=== PATIENT | female | born 2000 | race Caucasian/White ===

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

== ENCOUNTER 2020-02-02 21:39 | Emergency (ER) | payer MEDICAID ==
[2020-02-02 22:05] VITALS: BP 128/80
[2020-02-02] MEDS ORDERED: DIPHENHYDRAMINE HCL 50 MG/ML VIAL IV ONE (23:13)
[2020-02-02] MEDS ORDERED: NORMAL SALINE 1000 ML 1,000 ML IV ONE (23:13)
[2020-02-02] MEDS ORDERED: METOCLOPRAMIDE HCL INJ/PF 10 MG/2 ML SDV IV ONE (23:13)
--- NOTE | 2020-02-02 23:15 | ER Document Report ---
ED GI/ - General Chief Complaint: Nausea/Vomiting/Diarrhea Stated Complaint: NAUSEA VOMITTING Time Seen by Provider: 02/02/20 22:50 Notes: Patient is a 20-year-old female that comes emergency department for chief complaint of vomiting that started last night at 4 AM. She states she vomited all day, she states she believes she is vomited "40 times". She states she has had 3 loose stools. She denies hematemesis or hematochezia, denies fever, denies recent travel, denies sick contacts, denies any suspicious foods. She denies recent antibiotics. She states she has pain in her upper abdomen, into her chest, and into her back. She has had a cholecystectomy. She denies other abdominal surgeries. LMP within the past month. TRAVEL OUTSIDE OF THE [place] IN LAST 30 DAYS: No - Related Data Allergies/Adverse Reactions: ondansetron [From Zofran] Allergy (Intermediate, Verified 07/30/19 14:21) Hives Past Medical History - General Information source: Patient - Social History Smoking Status: Current Every Day Smoker Smoking Education Provided: Yes - <3 min Frequency of alcohol use: Occasional Drug Abuse: None Lives with: Spouse/Significant other Family History: Reviewed & Not Pertinent, Other - A sister had her gallbladder removed at age 20 Patient has homicidal ideation: No - Past Medical History Cardiac Medical History: Denies: Hx Coronary Artery Disease, Hx Heart Attack, Hx Hypertension Pulmonary Medical History: Reports: Hx Pneumonia Denies: Hx Asthma, Hx Bronchitis, Hx COPD Neurological Medical History: Denies: Hx Cerebrovascular Accident, Hx Seizures Endocrine Medical History: Denies: Hx Diabetes Mellitus Type 1, Hx Hyperthyroidism, Hx Hypothyroidism Renal/ Medical History: Denies: Hx Peritoneal Dialysis GI Medical History: Reports: Hx Gastroesophageal Reflux Disease, Hx Ulcer Musculoskeletal Medical History: Denies Hx Arthritis Psychiatric Medical History: Reports: Hx Anxiety, Hx Attention Deficit Hyperactivity Disorder - ADD, Hx Bipolar Disorder, Hx Depression - anxiety, anger issues Past Surgical History: Reports: Hx Cholecystectomy - 05/2017, Hx Gynecologic Surgery - x3. Denies: Hx Hysterectomy - Immunizations Immunizations up to date: Yes Hx Diphtheria, Pertussis, Tetanus Vaccination: Yes - UTD Review of Systems - Review of Systems Constitutional: No symptoms reported EENT: No symptoms reported Cardiovascular: No symptoms reported Respiratory: No symptoms reported Gastrointestinal: See HPI Genitourinary: No symptoms reported Female Genitourinary: No symptoms reported Musculoskeletal: No symptoms reported Skin: No symptoms reported Hematologic/Lymphatic: No symptoms reported Neurological/Psychological: No symptoms reported Physical Exam - Vital signs Vitals: Temp Pulse Resp BP Pulse Ox 98.8 F 67 20 128/80 H 98 02/02/20 22:04 02/02/20 22:04 02/02/20 22:04 02/02/20 22:04 02/02/20 22:04 - Notes Notes: GENERAL: Alert, interacts well. No acute distress. Talkative and well- appearing, playing on her phone HEAD: Normocephalic, atraumatic. EYES: Pupils equal, round, and reactive to light. Extraocular movements intact. ENT: Oral mucosa dry, tongue midline. Oropharynx unremarkable. Airway patent. NECK: Full range of motion. Supple. Trachea midline. No lymphadenopathy. LUNGS: Clear to auscultation bilaterally, no wheezes, rales, or rhonchi. No respiratory distress. Non-tender chest wall. HEART: Regular rate and rhythm. No murmur ABDOMEN: Soft, non-tender. Non-distended. EXTREMITIES: Moves all 4 extremities spontaneously. No edema, normal radial and dorsalis pedis pulses bilaterally. No cyanosis. BACK: no cervical, thoracic, lumbar midline tenderness. No saddle anesthesia, normal distal neurovascular exam. Moves all extremities in full range of motion. NEUROLOGICAL: Alert and oriented x3. Normal speech. Cranial nerves II through XII grossly intact. Strength 5/5 in all extremities. PSYCH: Normal affect, normal mood. SKIN: Warm, dry, normal turgor. No rashes or lesions noted. Course - Re-evaluation Re-evalutation: CBC shows mild leukocytosis but this is nonspecific given patient's well appearance, unremarkable vital signs, soft nontender abdomen, and unremarkable physical exam otherwise. Chemistry suggesting dehydration, urinalysis also showing elevated specific gravity and ketones. There are some white blood cells and leukocyte esterase but there are more squamous epithelial cells. Patient has no urinary symptoms, culture was placed instead of treatment at this time. Urine drug screen does show marijuana. Patient has tested positive for marijuana multiple times in the past, based on her repeated vomiting with no other apparent symptoms and no obvious cause otherwise I do suspect cyclic vomiting syndrome. I discussed details of the work-up with patient and my suspicions. After Reglan, Benadryl, IV fluids patient is improved, she tolerated p.o. medications without difficulty, she drinks 2 full cups of water, on reevaluation again she states she feels much improved and that she is ready to go home. I discussed precautions, recommendations, and return details at length. Patient states understanding and agreement with plan. Stable and well-appearing at time of discharge. - Vital Signs Vital signs: Temp Pulse Resp BP Pulse Ox 98.8 F 67 20 128/80 H 98 02/02/20 22:04 02/02/20 22:04 02/02/20 22:04 02/02/20 22:04 02/02/20 22:04 - Laboratory Result Diagrams: 02/02/20 23:44 02/02/20 23:44 Laboratory results interpreted by me: 02/02/20 02/02/20 02/02/20 23:44 23:44 23:57 WBC 13.6 H RBC 5.47 H MCV 79 L MCH 26.7 L Lymph % (Auto) 8.5 L [place] % (Auto) 2.6 L Absolute Neuts (auto) 12.0 H Seg Neutrophils % 88.5 H Glucose 128 H Calcium 10.3 H Total Protein 8.5 H Urine Protein 100 H Urine Ketones TRACE H Urine Blood SMALL H Ur Leukocyte Esterase TRACE H Discharge - Discharge Clinical Impression: Dehydration, Cyclic vomiting syndrome Vomiting Qualifiers: Vomiting type: unspecified Vomiting Intractability: non-intractable Nausea presence: with nausea Qualified Code(s): R11.2 - Nausea with vomiting, unspecified Condition: Stable Disposition: HOME, SELF-CARE Additional Instructions: Your work-up shows dehydration but is otherwise reassuring. Based on your evaluation and symptoms I believe you have cyclic vomiting syndrome caused by frequent and high levels of THC from cannabis. Do not use marijuana, take Phenergan for nausea, take Pepcid to help recover, drink plenty of fluids, start with bland diet. Symptoms should simply resolve. Follow-up with primary care. Return if you worsen including uncontrolled vomiting, fever, severe worsening pain, or any other concerning or worsening symptoms. Prescriptions: Famotidine [Pepcid 20 mg Tablet] 20 mg PO BID #12 tablet Promethazine HCl [Phenergan 25 mg Tablet] 25 mg PO Q6H PRN #15 tablet PRN Reason: Forms: Return to Work, Treatment of Relative/Child
[2020-02-03 00:08] LABS: ABSOLUTE LYMPHOCYTES (AUTO) 1.2 10^3/uL (0.5-4.7); MEAN CORPUSCULAR HGB CONC 33.9 g/dL (32.0-36.0); PLATELET COUNT 291 10^3/uL (150-450); TOTAL CELLS COUNTED % (AUTO) 100 %
[2020-02-03 00:14] LABS: ABSOLUTE BASOPHILS # (AUTO) 0.1 10^3/uL (0.0-0.2); ABSOLUTE MONOCYTES (AUTO) 0.4 10^3/uL (0.1-1.4); BASOPHILS % (AUTO) 0.4 % (0-2); HEMATOCRIT 43.1 % (36.0-47.0); HEMOGLOBIN 14.6 g/dL (12.0-15.5); LYMPHOCYTES % (AUTO) 8.5 % (13-45); MEAN CORPUSCULAR HEMOGLOBIN 26.7 pg (27.0-33.4); MEAN CORPUSCULAR VOLUME 79 fl (80-97); MONOCYTES % (AUTO) 2.6 % (3-13); RED BLOOD COUNT 5.47 10^6/uL (3.72-5.28); RED CELL DISTRIBUTION WIDTH 13.7 % (11.5-14.0); SEGMENTED NEUTROPHILS % (AUTO) 88.5 % (42-78); WHITE BLOOD COUNT 13.6 10^3/uL (4.0-10.5)
[2020-02-03 00:17] LABS: ALKALINE PHOSPHATASE 88 U/L (38-126); ANION GAP 9 (5-19); ASPARTATE AMINO TRANSFERASE 22 U/L (14-36); BILIRUBIN,TOTAL 0.6 mg/dL (0.2-1.3); BLOOD UREA NITROGEN 12 mg/dL (7-20); CALCIUM 10.3 mg/dL (8.4-10.2); CARBON DIOXIDE 27 mmol/L (22-30); CHLORIDE 104 mmol/L (98-107); GLUCOSE 128 mg/dL (75-110); POTASSIUM 4.6 mmol/L (3.6-5.0); TOTAL PROTEIN 8.5 g/dL (6.3-8.2)
[2020-02-03] MEDS ORDERED: MAG HYDROX/AL HYDROX/SIMETH SUSP 30 ML UDCUP PO ONE (00:34)
[2020-02-03] MEDS ORDERED: LIDOCAINE 2% VISCOUS SOLN 15 ML UDCUP PO ONE (00:34)
[2020-02-03] MEDS ORDERED: HYDROCODONE/ACETAMINOPHEN 5-325 MG TABLET PO ONE (00:34)
[2020-02-03 00:38] LABS: APPEARANCE,URINE SLIGHTLY-CLOUDY; BILIRUBIN,URINE NEGATIVE (NEGATIVE); COLOR,URINE YELLOW; GLUCOSE, URINE NEGATIVE (NEGATIVE); KETONES,URINE TRACE mg/dL (NEGATIVE); LEUKOCYTE ESTERASE,URINE TRACE (NEGATIVE); NITRITE,URINE NEGATIVE (NEGATIVE); PROTEIN,URINE 100 mg/dL (NEGATIVE); URINE SPECIFIC GRAVITY 1.027; UROBILINOGEN,URINE NEGATIVE mg/dL (<2.0)
[2020-02-03] MEDS ORDERED: PROMETHAZINE HCL 25 MG TABLET PO ONE (02:04)
[2020-02-03 02:35] LABS: URINE AMPHETAMINES SCREEN NEGATIVE; URINE BARBITURATES SCREEN NEGATIVE; URINE BENZODIAZEPINES SCREEN NEGATIVE; URINE COCAINE SCREEN NEGATIVE; URINE MARIJUANA (THC) SCREEN UNCONFIRMED POSITIVE; URINE METHADONE SCREEN NEGATIVE; URINE PHENCYCLIDINE SCREEN NEGATIVE
--- NOTE | 2020-02-03 06:24 | EKG REPORT ---
SEVERITY:- NORMAL ECG - SINUS ARRHYTHMIA : Confirmed by: Jon Cr MD 03-Feb-2020 06:23:54
== END 2020-02-03 03:25 | disposition home or self-care (01) ==
LOC: ER 21:39
DX: E86.0 Dehydration (principal); R11.15 Cyclical vomiting syndrome unrelated to migraine; R19.7 Diarrhea, unspecified; F17.200 Nicotine dependence, unspecified, uncomplicated; Z90.49 Acquired absence of other specified parts of digestive tract
CPT/HCPCS: 93005; 99283; 96361; 96374; 96375; 36415; 83690; 84703; 85025; 80053; 81001; 80307; 93010; J1200; J3490 ×3; J2765; J7030; 87086

== ENCOUNTER 2020-05-02 14:57 | Emergency (ER) | payer MEDICAID | END 2020-05-02 15:46 | disposition left against medical advice (07) | LOC: ER 14:57 | DX: Z53.21 Procedure and treatment not carried out due to patient leaving prior to being seen by health care provider (principal) ==

== ENCOUNTER 2020-06-17 19:02 | Emergency (ER) | payer MEDICAID ==
[2020-06-17] MEDS ORDERED: PROMETHAZINE HCL INJ 25 MG/1 ML VIAL IV ONE ×2 (19:42→22:22)
[2020-06-17] MEDS ORDERED: NORMAL SALINE 1000 ML 1,000 ML IV ONE (19:42)
--- NOTE | 2020-06-17 19:45 | ER Document Report ---
ED Medical Screen (RME) - General Stated Complaint: SHORTNESS OF BREATH/NAUSEA/+ Time Seen by Provider: 06/17/20 19:30 Mode of Arrival: Ambulatory Information source: Patient Notes: Patient is a 20-year-old female comes emergency room complaining of nausea vomiting and being . Patient states that she went to the hospital in [place] about 3 days ago was told that she was 5 to 6 weeks get an u ltrasound the patient states that he did not see anything at that time. Diagnosed with UTI and put her on antibiotics. Patient states that she has been getting worse increasing shortness of breath vomiting anything she eats or drinks over the last 24 hours. She states she is unable to hold anything down. Patient is 3 para 02 abortions. She also states that she has a major headache with head pressure. She is also had a cholecystectomy in the past. Patient does admit to smoking. Patient also does state that she had a recent history of pneumonia and this feels similar to that. Physical examination shows a new well-nourished well-developed 20-year-old female though no apparent distress does appear ill and is actively vomiting in triage. Cardiac: Patient displays a regular rate and rhythm of 67 bpm on monitor and a blood pressure 125/81. Lungs: Bilateral breath sounds breath sounds decreased no rhonchi rales or wheeze heard. Abdomen: Bowel sounds are present all quads there is no tenderness to palpation at this time. I have greeted and performed a rapid initial assessment of this patient. A comprehensive ED assessment and evaluation of the patient, analysis of test re sults and completion of the medical decision making process will be conducted by additional ED providers. Dictation of this chart was performed using voice recognition software; therefore, there may be some unintended grammatical errors. TRAVEL OUTSIDE OF THE [place] IN LAST 30 DAYS: No - Related Data Allergies/Adverse Reactions: ondansetron [From Zofran] Allergy (Intermediate, Verified 07/30/19 14:21) Hives Home Medications: prenatals Past Medical History - Social History Frequency of alcohol use: None Drug Abuse: None - Past Medical History Cardiac Medical History: Denies: Hx Coronary Artery Disease, Hx Heart Attack, Hx Hypertension Pulmonary Medical History: Reports: Hx Pneumonia Denies: Hx Asthma, Hx Bronchitis, Hx COPD Neurological Medical History: Denies: Hx Cerebrovascular Accident, Hx Seizures Endocrine Medical History: Denies: Hx Diabetes Mellitus Type 1, Hx Hyperthyroidism, Hx Hypothyroidism Renal/ Medical History: Denies: Hx Peritoneal Dialysis GI Medical History: Reports: Hx Gastroesophageal Reflux Disease, Hx Ulcer Musculoskeltal Medical History: Denies Hx Arthritis Psychiatric Medical History: Reports: Hx Anxiety, Hx Attention Deficit Hyperactivity Disorder - ADD, Hx Bipolar Disorder, Hx Depression - anxiety, anger issues Past Surgical History: Reports: Hx Cholecystectomy - 05/2017, Hx Gynecologic Surgery - x3. Denies: Hx Hysterectomy - Immunizations Immunizations up to date: Yes Hx Diphtheria, Pertussis, Tetanus Vaccination: Yes - UTD Physical Exam - Vital signs Vitals: Temp Pulse Resp BP Pulse Ox 98.4 F 67 20 123/81 99 06/17/20 19:25 06/17/20 19:25 06/17/20 19:25 06/17/20 19:25 06/17/20 19:25 Course - Vital Signs Vital signs: Temp Pulse Resp BP Pulse Ox 98.4 F 67 20 123/81 99 06/17/20 19:25 06/17/20 19:25 06/17/20 19:25 06/17/20 19:25 06/17/20 19:25
[2020-06-17 21:05] LABS: ABSOLUTE LYMPHOCYTES (AUTO) 1.4 10^3/uL (0.5-4.7); ABSOLUTE MONOCYTES (AUTO) 0.6 10^3/uL (0.1-1.4); ABSOLUTE NEUT (AUTO) 11.6 10^3/uL (1.7-8.2); BASOPHILS % (AUTO) 0.3 % (0-2); HEMATOCRIT 42.1 % (36.0-47.0); HEMOGLOBIN 14.3 g/dL (12.0-15.5); LYMPHOCYTES % (AUTO) 10.6 % (13-45); MEAN CORPUSCULAR HEMOGLOBIN 26.5 pg (27.0-33.4); MEAN CORPUSCULAR HGB CONC 33.9 g/dL (32.0-36.0); MEAN CORPUSCULAR VOLUME 78 fl (80-97); MONOCYTES % (AUTO) 4.2 % (3-13); PLATELET COUNT 280 10^3/uL (150-450); RED BLOOD COUNT 5.38 10^6/uL (3.72-5.28); RED CELL DISTRIBUTION WIDTH 13.2 % (11.5-14.0); SEGMENTED NEUTROPHILS % (AUTO) 84.9 % (42-78); TOTAL CELLS COUNTED % (AUTO) 100 %; WHITE BLOOD COUNT 13.7 10^3/uL (4.0-10.5)
[2020-06-17 21:25] LABS: ALBUMIN 4.5 g/dL (3.5-5.0); ALKALINE PHOSPHATASE 62 U/L (38-126); ANION GAP 10 (5-19); ASPARTATE AMINO TRANSFERASE 33 U/L (14-36); BILIRUBIN,DIRECT 0.2 mg/dL (0.0-0.4); BILIRUBIN,TOTAL 1.1 mg/dL (0.2-1.3); BLOOD UREA NITROGEN 10 mg/dL (7-20); CALCIUM 9.9 mg/dL (8.4-10.2); CARBON DIOXIDE 26 mmol/L (22-30); CHLORIDE 101 mmol/L (98-107); GLUCOSE 97 mg/dL (75-110); POTASSIUM 4.2 mmol/L (3.6-5.0); TOTAL PROTEIN 7.5 g/dL (6.3-8.2)
[2020-06-17 21:34] LABS: APPEARANCE,URINE CLOUDY; BILIRUBIN,URINE NEGATIVE (NEGATIVE); COLOR,URINE AMBER; GLUCOSE, URINE NEGATIVE (NEGATIVE); KETONES,URINE 80 mg/dL (NEGATIVE); LEUKOCYTE ESTERASE,URINE LARGE (NEGATIVE); NITRITE,URINE NEGATIVE (NEGATIVE); PROTEIN,URINE 100 mg/dL (NEGATIVE); URINE SPECIFIC GRAVITY 1.032
--- NOTE | 2020-06-17 21:50 | ER Document Report ---
ED Headache - General Chief Complaint: Headache Stated Complaint: SHORTNESS OF BREATH/NAUSEA/+ Time Seen by Provider: 06/17/20 19:30 Mode of Arrival: Ambulatory Information source: Patient Notes: ED Medical Screen (Dereck Kraft) - General Stated Complaint: SHORTNESS OF BREATH/NAUSEA/+ Time Seen by Provider: 06/17/20 19:30 Mode of Arrival: Ambulatory Information source: Patient Notes: Patient is a 20-year-old female comes emergency room complaining of nausea vomiting and being . Patient states that she went to the hospital in [place] about 3 days ago was told that she was 5 to 6 weeks get an ultrasound the patient states that he did not see anything at that time. Diagnosed with UTI and put her on antibiotics. Patient states that she has been getting worse increasing shortness of breath vomiting anything she eats or drinks over the last 24 hours. She states she is unable to hold anything down. Patient is 3 para 02 abortions. She also states that she has a major headache with head pressure. She is also had a cholecystectomy in the past. Patient does admit to smoking. Patient also does state that she had a recent history of pneumonia and this feels similar to that. Physical examination shows a new well-nourished well-developed 20-year-old female though no apparent distress does appear ill and is actively vomiting in triage. Cardiac: Patient displays a regular rate and rhythm of 67 bpm on monitor and a blood pressure 125/81. Lungs: Bilateral breath sounds breath sounds decreased no rhonchi rales or wheeze heard. Abdomen: Bowel sounds are present all quads there is no tenderness to palpation at this time. MY NOTES 20-year-old black female arrives with chief complaint of nausea but no vomiting and she is now around 5 weeks gravid. She went to [facility] the prior night and had an ultrasound done that was positive for IUP at 5 weeks. She reports she has had no appetite for several weeks but especially over the last 2 days. She also has anterior chest pressure. She reports she cannot hold any fluids down well and does not have any taste. Patient reports she has had pneumonia around 2015 and she is currently G4, P0 AB 3. Patient also reports she has had UTIs in the past. She denies any COVID-19 but chest x-ray tonight reveals interstitial pattern especially right lower lobe. Patient reports her mother cleaned her right ear out prior to arrival with ear cleanser. She has some right ear ache. TRAVEL OUTSIDE OF THE [place] IN LAST 30 DAYS: No - Related Data Allergies/Adverse Reactions: ondansetron [From Zofran] Allergy (Intermediate, Verified 07/30/19 14:21) Hives Home Medications: prenatals Past Medical History - General Information source: Patient - Social History Smoking Status: Never Smoker Cigarette use (# per day): No Chew tobacco use (# tins/day): No Smoking Education Provided: No Frequency of alcohol use: None Drug Abuse: None Lives with: Family Family History: Reviewed & Not Pertinent, Other - A sister had her gallbladder removed at age 20 Patient has suicidal ideation: No Patient has homicidal ideation: No - Past Medical History Cardiac Medical History: Denies: Hx Coronary Artery Disease, Hx Heart Attack, Hx Hypertension Pulmonary Medical History: Reports: Hx Pneumonia Denies: Hx Asthma, Hx Bronchitis, Hx COPD Neurological Medical History: Denies: Hx Cerebrovascular Accident, Hx Seizures Endocrine Medical History: Denies: Hx Diabetes Mellitus Type 1, Hx H yperthyroidism, Hx Hypothyroidism Renal/ Medical History: Denies: Hx Peritoneal Dialysis GI Medical History: Reports: Hx Gastroesophageal Reflux Disease, Hx Ulcer Musculoskeletal Medical History: Denies Hx Arthritis Psychiatric Medical History: Reports: Hx Anxiety, Hx Attention Deficit Hyperactivity Disorder - ADD, Hx Bipolar Disorder, Hx Depression - anxiety, anger issues Past Surgical History: Reports: Hx Cholecystectomy - 05/2017, Hx Gynecologic Surgery - x3. Denies: Hx Hysterectomy - Immunizations Immunizations up to date: Yes Hx Diphtheria, Pertussis, Tetanus Vaccination: Yes - UTD Review of Systems - Review of Systems Constitutional: See HPI, Malaise, Recent illness EENT: See HPI, Ear pain - R>L Cardiovascular: See HPI, Chest pain Respiratory: No symptoms reported Gastrointestinal: No symptoms reported Genitourinary: No symptoms reported Female Genitourinary: No symptoms reported Musculoskeletal: No symptoms reported Skin: No symptoms reported Hematologic/Lymphatic: No symptoms reported Neurological/Psychological: No symptoms reported Physical Exam - Vital signs Vitals: Temp Pulse Resp BP Pulse Ox 98.4 F 67 20 123/81 99 06/17/20 19:25 06/17/20 19:25 06/17/20 19:25 06/17/20 19:25 11/25/20 19:25 Interpretation: Normal - General General appearance: Appears well, Alert - HEENT Head: Normocephalic, Atraumatic Eyes: Normal Conjunctiva: Normal Cornea: Normal Extraocular movements intact: Yes Pupils: PERRL External canal: Other - moist cerumen in both canals Sinus: Normal Nasal: Normal Mouth/Lips: Normal Mucous membranes: Normal Pharynx: Normal Neck: Normal - Respiratory Respiratory status: No respiratory distress Chest status: Nontender Breath sounds: Normal Chest palpation: Normal - Cardiovascular Rhythm: Regular Heart sounds: Normal auscultation Murmur: No - Abdominal Inspection: Normal Distension: No distension Bowel sounds: Normal Tenderness: Nontender Organomegaly: No organomegaly - Rectal Hemorrhoids: Other - deferred - Genitourinary Bimanuel exam: Other - deferred - Back Back: Normal, Nontender - Extremities General upper extremity: Normal inspection, Nontender, Normal color, Normal ROM, Normal temperature General lower extremity: Normal inspection, Nontender, Normal color, Normal ROM, Normal temperature, Normal weight bearing. No: Ruddy's sign - Neurological Neuro grossly intact: Yes Cognition: Normal Orientation: AAOx4 [place] Coma Scale Eye Opening: Spontaneous [place] Coma Scale Verbal: Oriented [place] Coma Scale Motor: Obeys Commands [place] Coma Scale Total: 15 Speech: Normal Motor strength normal: LUE, RUE, LLE, RLE Sensory: Normal - Psychological Associated symptoms: Anxious - Skin Skin Temperature: Warm Skin Moisture: Dry Skin Color: Normal Course - Vital Signs Vital signs: Temp Pulse Resp BP Pulse Ox 98.4 F 67 20 123/81 99 06/17/20 19:25 06/17/20 19:25 06/17/20 19:25 06/17/20 19:25 06/17/20 19:25 - Laboratory Result Diagrams: 06/17/20 20:40 06/17/20 20:40 Laboratory results interpreted by me: 06/17/20 06/17/20 06/17/20 20:40 20:40 20:40 WBC 13.7 H RBC 5.38 H MCV 78 L MCH 26.5 L Lymph % (Auto) 10.6 L Absolute Neuts (auto) 11.6 H Seg Neutrophils % 84.9 H Creatinine 0.50 L ALT 39 H Beta HCG, Quant 88572.00 H Urine Protein 100 H Urine Ketones 80 H Urine Urobilinogen 2.0 H Ur Leukocyte Esterase LARGE H - Diagnostic Test Radiology reviewed: Reports reviewed - Chest x-ray NAD per radiologist; interstitial on my exam Discharge - Discharge Clinical Impression: Bronchitis, EMESIS GRAVIDARUM UTI (urinary tract infection) Qualifiers: Urinary tract infection type: acute cystitis Hematuria presence: without hematuria Qualified Code(s): N30.00 - Acute cystitis without hematuria Qualifiers: Weeks of gestation: less than 8 weeks Qualified Code(s): Z3A.01 - Less than 8 weeks gestation of Condition: Stable Disposition: HOME, SELF-CARE Additional Instructions: Follow-up with OB doctor this week return to ER as needed take medicines as directed encourage fluids. Prescriptions: Promethazine HCl [Phenergan 25 mg Tablet] 1 tab PO BID PRN #15 tablet PRN Reason: nausea Forms: Return to Work
[2020-06-17] MEDS ORDERED: CEFTRIAXONE INJ 1000 MG VIAL IV ONE (22:10)
[2020-06-17] MEDS ORDERED: AZITHROMYCIN INJ 500 MG VIAL IV ONE (22:13)
--- NOTE | 2020-06-17 22:40 | RADIOLOGY REPORT (SQ) ---
EXAM DESCRIPTION: XR CHEST 1 VIEW COMPLETED DATE/TME: 06/17/2020 22:02 CLINICAL HISTORY: 20 years, Female, sob COMPARISON: November 09, 2019 NUMBER OF VIEWS: One TECHNIQUE: Portable AP view of the chest was obtained at 9:56 PM. LIMITATIONS: None. FINDINGS: The heart size is normal. Lungs appear clear. There is no evidence of pleural effusion or pneumothorax. No definite acute bony abnormality is seen. IMPRESSION: No acute abnormality as above. copyright 2010 [employer]- All Rights Reserved
[2020-06-18 02:22] LABS: CHLAM PCR NOT DETECTED (NOT DETECT)
[2020-06-18 03:07] VITALS: BP 116/54
[2020-06-18 03:51] LABS: A TYPE INFLUENZA AG NEGATIVE (NEGATIVE); B INFLUENZA AG NEGATIVE (NEGATIVE)
== END 2020-06-18 03:13 | disposition home or self-care (01) ==
LOC: ER 19:02
DX: O23.11 Infections of bladder in pregnancy, first trimester (principal); O99.511 Diseases of the respiratory system complicating pregnancy, first trimester; O21.0 Mild hyperemesis gravidarum; O26.891 Other specified pregnancy related conditions, first trimester; R51.9 Headache, unspecified; R06.02 Shortness of breath; R07.9 Chest pain, unspecified; H92.01 Otalgia, right ear; O99.331 Smoking (tobacco) complicating pregnancy, first trimester; Z3A.01 Less than 8 weeks gestation of pregnancy; Z20.828 Contact with and (suspected) exposure to other viral communicable diseases
CPT/HCPCS: 99284; 96361 ×2; 96375; 96365; 96368; 36415; 87040; 87086; 84702; 83690; 85025; 87635; 80053; 81001; 87491; 87591; 87804; 71045; J2550; J0696; J7030; J0456; C9803

== ENCOUNTER 2020-06-27 12:29 | Emergency (ER) | payer MEDICAID ==
[2020-06-27] MEDS ORDERED: RINGERS SOLUTION,LACTATED 1,000 ML IV ONE (13:21)
[2020-06-27] MEDS ORDERED: METOCLOPRAMIDE HCL INJ/PF 10 MG/2 ML SDV IV ONE (13:22)
--- NOTE | 2020-06-27 13:23 | ER Document Report ---
ED Medical Screen (RME) - General Chief Complaint: Vomiting Stated Complaint: VOMITING, SHORTNESS OF BREATH, CHEST TIGHTNESS Time Seen by Provider: 06/27/20 13:15 Mode of Arrival: Wheelchair Information source: Patient Notes: HPI; 20-year-old female who states she is approximately 8 weeks presents to the emergency room with persistent nausea, vomiting, and decreased urination for the past week. States she was seen here June 17 was diagnosed with bronchitis had a negative Covid test was discharged home with Phenergan states she is unable to tolerate the Phenergan. She is a 3 para 0 with 2 previous abortions. No previous OB care. Denies any vaginal bleeding or discharge. Negative Covid test June 17. Denies any COVID-19 exposure. PE: Alert and oriented x3. Lungs: Clear to auscultation without rales, rhonchi, wheezes. Heart: Tachycardic without murmurs, rubs, gallops. I have greeted and performed a rapid initial assessment of this patient. A comprehensive ED assessment and evaluation of the patient, analysis of test results and completion of the medical decision making process will be conducted by additional ED providers. I have specifically instructed the patient or family members with the patient to immediately return to any nursing staff should anything change in the patient's condition or with their chief complaint. TRAVEL OUTSIDE OF THE [place] IN LAST 30 DAYS: No - Related Data Allergies/Adverse Reactions: ondansetron [From Zofran] Allergy (Intermediate, Verified 06/27/20 12:55) Hives Past Medical History - Social History Chew tobacco use (# tins/day): No Frequency of alcohol use: None Drug Abuse: None - Past Medical History Cardiac Medical History: Denies: Hx Coronary Artery Disease, Hx Heart Attack, Hx Hypertension Pulmonary Medical History: Reports: Hx Pneumonia Denies: Hx Asthma, Hx Bronchitis, Hx COPD Neurological Medical History: Denies: Hx Cerebrovascular Accident, Hx Seizures Endocrine Medical History: Denies: Hx Diabetes Mellitus Type 1, Hx Hyperthyroidism, Hx Hypothyroidism Renal/ Medical History: Denies: Hx Peritoneal Dialysis GI Medical History: Reports: Hx Gastroesophageal Reflux Disease, Hx Ulcer Musculoskeltal Medical History: Denies Hx Arthritis Psychiatric Medical History: Reports: Hx Anxiety, Hx Attention Deficit Hyperactivity Disorder - ADD, Hx Bipolar Disorder, Hx Depression - anxiety, anger issues Past Surgical History: Reports: Hx Cholecystectomy - 05/2017, Hx Gynecologic Surgery - x3. Denies: Hx Hysterectomy - Immunizations Immunizations up to date: Yes Hx Diphtheria, Pertussis, Tetanus Vaccination: Yes - UTD Physical Exam - Vital signs Vitals: Temp Pulse Resp BP Pulse Ox 98.0 F 96 16 129/91 H 98 06/27/20 12:36 06/27/20 12:36 06/27/20 12:36 06/27/20 12:36 06/27/20 12:36 Course - Vital Signs Vital signs: Temp Pulse Resp BP Pulse Ox 98.0 F 96 16 129/91 H 98 06/27/20 12:36 06/27/20 12:36 06/27/20 12:36 06/27/20 12:36 06/27/20 12:36
[2020-06-27 14:32] LABS: ABSOLUTE LYMPHOCYTES (AUTO) 1.8 10^3/uL (0.5-4.7); ABSOLUTE MONOCYTES (AUTO) 0.8 10^3/uL (0.1-1.4); ABSOLUTE NEUT (AUTO) 7.7 10^3/uL (1.7-8.2); BASOPHILS % (AUTO) 0.4 % (0-2); EOSINOPHILS % (AUTO) 0.1 % (0-6); HEMATOCRIT 43.8 % (36.0-47.0); LYMPHOCYTES % (AUTO) 17.1 % (13-45); MEAN CORPUSCULAR HEMOGLOBIN 26.4 pg (27.0-33.4); MEAN CORPUSCULAR HGB CONC 34.2 g/dL (32.0-36.0); MEAN CORPUSCULAR VOLUME 77 fl (80-97); MONOCYTES % (AUTO) 7.5 % (3-13); PLATELET COUNT 262 10^3/uL (150-450); RED BLOOD COUNT 5.68 10^6/uL (3.72-5.28); RED CELL DISTRIBUTION WIDTH 12.6 % (11.5-14.0); SEGMENTED NEUTROPHILS % (AUTO) 74.9 % (42-78); TOTAL CELLS COUNTED % (AUTO) 100 %; WHITE BLOOD COUNT 10.3 10^3/uL (4.0-10.5)
[2020-06-27 14:41] LABS: APPEARANCE,URINE CLOUDY; BILIRUBIN,URINE NEGATIVE (NEGATIVE); COLOR,URINE AMBER; GLUCOSE, URINE NEGATIVE (NEGATIVE); KETONES,URINE 80 mg/dL (NEGATIVE); LEUKOCYTE ESTERASE,URINE SMALL (NEGATIVE); NITRITE,URINE NEGATIVE (NEGATIVE); PROTEIN,URINE 100 mg/dL (NEGATIVE); URINE SPECIFIC GRAVITY 1.024
[2020-06-27 14:49] LABS: ALBUMIN 4.7 g/dL (3.5-5.0); ALKALINE PHOSPHATASE 87 U/L (38-126); ANION GAP 10 (5-19); ASPARTATE AMINO TRANSFERASE 92 U/L (14-36); BILIRUBIN,DIRECT 0.2 mg/dL (0.0-0.4); BILIRUBIN,TOTAL 1.3 mg/dL (0.2-1.3); BLOOD UREA NITROGEN 5 mg/dL (7-20); CALCIUM 10.1 mg/dL (8.4-10.2); CARBON DIOXIDE 31 mmol/L (22-30); CHLORIDE 93 mmol/L (98-107); GLUCOSE 104 mg/dL (75-110); POTASSIUM 3.4 mmol/L (3.6-5.0); TOTAL PROTEIN 7.9 g/dL (6.3-8.2)
[2020-06-27] MEDS ORDERED: NORMAL SALINE 1000 ML 1,000 ML IV ONE (15:11)
[2020-06-27] MEDS ORDERED: CEFTRIAXONE 1 GM/D5W RTU 1 GM/50 ML RTUPB IV ONE (15:11)
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
[2020-06-27 18:01] VITALS: BP 128/67
== END 2020-06-27 18:05 | disposition home or self-care (01) ==
LOC: ER 12:29
DX: O21.9 Vomiting of pregnancy, unspecified (principal); R74.01 Elevation of levels of liver transaminase levels; D72.829 Elevated white blood cell count, unspecified; R06.02 Shortness of breath; R07.9 Chest pain, unspecified; Z3A.08 8 weeks gestation of pregnancy
CPT/HCPCS: 99284; 96361; 96375; 96365; 36415; 87086; 84702; 85025; 80053; 81001; J2765; J7030; J7120; J0696